=== PATIENT | male | born 1985 | race African-American/Black ===

== ENCOUNTER 2021-11-11 00:21 | Emergency (ER) | payer SELFPAY ==
[2021-11-11 01:48] VITALS: BMI 23.1
[2021-11-11 05:37] VITALS: BP 92/50; PULSE 54; TEMP 97.8
== END 2021-11-11 05:59 | disposition home or self-care (01) ==
LOC: JER 00:21
DX: F19.929 Other psychoactive substance use, unspecified with intoxication, unspecified (principal); K29.20 Alcoholic gastritis without bleeding
CPT/HCPCS: 82962; 99281-25